=== PATIENT | female | born 1965 | race Caucasian/White ===

== ENCOUNTER 2024-10-26 06:24 | Day surgery (SDC) | payer BC ==
[~2024-10-26 06:24] MED LIST: Lactated Ringers 1,000 ML IV SCH
[2024-10-26] MEDS: Lactated Ringers 1,000 ML IV SCH (07:07)
[2024-10-26] MEDS ORDERED: propofoL 500 MG/50 ML 50 ML ONE (07:21)
[2024-10-26] MEDS ORDERED: Sodium Chloride 0.9% 0 ML ONE (07:22)
[2024-10-26] MEDS ORDERED: dexmedeTOMIDine HCl 200 MCG/2 ML SDV ONE (07:22)
== END 2024-10-26 09:14 | disposition home or self-care (01) ==
LOC: MW.SDS 06:24
PROVIDERS: ATTEND Surgery
DX: D12.0 Benign neoplasm of cecum (principal); K29.50 Unspecified chronic gastritis without bleeding; R19.4 Change in bowel habit; K31.89 Other diseases of stomach and duodenum; K31.7 Polyp of stomach and duodenum; K22.89 Other specified disease of esophagus; K20.0 Eosinophilic esophagitis; K21.9 Gastro-esophageal reflux disease without esophagitis; K44.9 Diaphragmatic hernia without obstruction or gangrene; K57.30 Diverticulosis of large intestine without perforation or abscess without bleeding; I10 Essential (primary) hypertension; E11.9 Type 2 diabetes mellitus without complications; E66.9 Obesity, unspecified; Z79.4 Long term (current) use of insulin; Z79.84 Long term (current) use of oral hypoglycemic drugs; Z68.31 Body mass index [BMI] 31.0-31.9, adult; Z79.899 Other long term (current) drug therapy
CPT/HCPCS: 00813; 82947; J2704; J7120